=== PATIENT | female | born 1950 | race Caucasian/White ===

== ENCOUNTER 2020-02-17 07:36 | Outpatient (CLI) | payer BC ==
--- NOTE | 2020-02-17 11:28 | PET ---
Radionucleotide PET scan with CT attenuation correction HISTORY: Right upper lobe lung cancer with metastatic disease. Initial staging. COMPARISON: CT chest basilar Linda 02/04/2020. FINDINGS: Physiologic uptake of radiotracer throughout the enteric system and along each urinary trac t. The bilobed mass in the right upper lobe lung as a morphologic appearance similar to the CT chest fro m Linda 02/04/2020, measuring 3.3 cm x 3.0 cm greatest diameters on the current CT images. There is peripheral atelectasis. Max SUV associated with the mass is 12.0. Slightly enlarged precarinal lymph node shows max SUV 8.6. Right hilar lymph node max SUV 6.7. Other hypermetabolic abnormalities are associated with the skeleton. Locations and (max SUV) are as f ollows: Right distal clavicle (8.1) Left scapular glenoid (10.6) Right rib 7 lateral (6.7) Left rib 6 anterior (3.6) Left rib 9 lateral (6.4) Left rib 9 anterior (3.2) Sacrum right side large mass (11.3) Sacrum left superior endplate (9.5) Right iliac body (3.7) Left iliac body (9.9) Left acetabulum (9.8) Left ischium lateral (7.3) Right proximal femur (8.1, 10.5) C2 left body (7.9) C4 right superior facet (6.7) T3 left transverse process (8.5) T5 left pedicle (7.6) T6 right body (8.1) T11 right body (5.7) T12 anterior body (7.1) L2 superior endplate with mild compression (11.5) L3 right transverse process (7.0) L5 body (13.2) Nondiagnostic CT attenuation correction images also show craniotomy defect at the left temporoparieta l region. IMPRESSION : Right upper lobe neoplasm with mediastinal lymph node involvement and extensive widespread osseous me tastases. The L2 superior endplate lesion results in mild compression of the vertebral body.
== END 2020-02-17 07:37 | disposition home or self-care (01) ==
LOC: PET 07:36
PROVIDERS: ATTEND Internal Medicine Hematology & Oncology
DX: C34.11 Malignant neoplasm of upper lobe, right bronchus or lung (principal); C79.31 Secondary malignant neoplasm of brain; C79.51 Secondary malignant neoplasm of bone; G95.20 Unspecified cord compression
CPT/HCPCS: 78815; A9552

== ENCOUNTER 2020-04-12 12:31 | Outpatient (CLI) | payer BC ==
--- NOTE | 2020-04-12 13:07 | ULT ---
EXAM: Left lower extremity venous ultrasound HISTORY: Left lower extremity pain and edema COMPARISON: None TECHNIQUE: Multiplanar grayscale and color Doppler images were obtained in a left lower extremity anais ous ultrasound. Spectral analysis of the Doppler waveforms were performed. FINDINGS: The common femoral vein, profunda femoral vein, superficial femoral vein, and popliteal vei n are normal in appearance without visible thrombus. These vessels demonstrate normal compression, flow, and augmentation. The posterior tibial vein and greater saphenous vein are patent without evidence of thrombus. IMPRESSION: No evidence of DVT.
== END 2020-04-12 12:32 | disposition home or self-care (01) ==
LOC: BICULT 12:31
PROVIDERS: ATTEND Internal Medicine Hematology & Oncology
DX: M79.605 Pain in left leg (principal); R60.0 Localized edema; M79.89 Other specified soft tissue disorders

== ENCOUNTER 2020-08-14 06:35 | Outpatient (CLI) | payer BC ==
[2020-08-15 02:56] LABS: SARS-CoV-2 MS2 Positive; SARS-CoV-2 N Gene Negative; SARS-CoV-2 S Gene Negative; SARS-CoV-2 by NAA Not Detected (NotDetected); SARS-CoV-2 orf1ab Negative
== END 2020-08-14 06:36 | disposition home or self-care (01) ==
LOC: LABBT 06:35
PROVIDERS: ATTEND Surgery
DX: Z01.812 Encounter for preprocedural laboratory examination (principal); Z20.828 Contact with and (suspected) exposure to other viral communicable diseases; C34.90 Malignant neoplasm of unspecified part of unspecified bronchus or lung
CPT/HCPCS: 87635; U0003

== ENCOUNTER 2020-08-17 09:33 | Day surgery (SDC) | payer BC ==
[2020-08-16 12:22] VITALS: BMI 26.0
[2020-08-17] MEDS ORDERED: Lidocaine 1% PF 5 ML VIAL ONE (09:54)
[2020-08-17] MEDS ORDERED: Lidocaine 1% w/Epinephrine 1:100K 20 ML VIAL ONE (10:53)
[2020-08-17] MEDS ORDERED: Bupivacaine 0.25% HCL 30 ML VIAL ONE (10:53)
[2020-08-17] MEDS ORDERED: PROPOFOL 40 ML ONE (11:01)
[2020-08-17] MEDS ORDERED: Fentanyl 100 MCG/2 ML VIAL ONE (11:01)
--- NOTE | 2020-08-17 13:18 | RAD ---
Chest AP view INDICATION: History of Mediport placement COMPARISON: February 03, 2020 FINDINGS: Lungs: Right upper lobe lung mass is stable. Left lung is clear. Cardiac silhouette: There is a right IJ chest wall port in place. The tip of the catheter seen withi n the SVC. Heart size is within normal limits. Pulmonary vasculature: Normal Pleural spaces: No pleural effusion or pneumothorax is demonstrated. Upper abdomen: No abnormality seen. Osseous structures: No acute osseous abnormality. Additional findings: None. IMPRESSION: New right chest wall Mediport placement. No pneumothorax. Stable right upper lobe lung mass.
--- NOTE | 2020-08-17 19:31 | OP ---
DATE OF PROCEDURE: 08/17/2020 PREOPERATIVE DIAGNOSIS: Lung cancer. POSTOPERATIVE DIAGNOSIS: Lung cancer. PROCEDURE PERFORMED: Tunneled central line with subcutaneous port (MediPort). ANESTHESIA: TIVA with local. ESTIMATED BLOOD LOSS: Minimal. COMPLICATION: None. SPECIMEN: None. FINDINGS: The tip of the catheter was at the atriocaval junction. DESCRIPTION OF PROCEDURE: The patient was taken to the operating room and laid supine on the operating room table. After general anesthetic was obtained, the neck and chest were prepped and draped in a sterile fashion. Local anesthetic was infiltrated over the right internal jugular vein. Internal jugular vein was cannulated using a 22-gauge Finder needle followed by a Seldinger needle. Wire was passed into the superior vena cava under fluoro guidance. A small aaron was made at the wire entrance site. A separate 3 cm incision was made in the right upper chest. Subcutaneous pocket was made below the lower incision. Tubing for the MediPort tunneled from the inferior to superior incision and suture sheath was placed over the wire into the superior vena cava under fluoro guidance. The dilator and wire were removed. The end of the catheter threaded into the sheath. The sheath was peeled away. The tip of the catheter was at the atriocaval junction. MediPort tubing was cut to fit the MediPort at the lower incision. MediPort was sewn to the chest wall in the subcutaneous pocket using Prolene suture. The MediPort flushes and draws blood without difficulties, flushed with a heparin flush. The wounds were all irrigated and closed using 3-0 Vicryl, 4-0 Monocryl, and Dermabond. The patient was sent to Recovery in stable condition. All instrument counts, needle counts, and lap counts were correct. Job ID: [id number]
== END 2020-08-17 13:32 | disposition home or self-care (01) ==
LOC: SDC 09:33
PROVIDERS: ATTEND Surgery
PROC: 02HV33Z Insertion of Infusion Device into Superior Vena Cava, Percutaneous Approach (ICD-10-PCS; principal; 2020-08-17)
DX: C34.90 Malignant neoplasm of unspecified part of unspecified bronchus or lung (principal); C79.51 Secondary malignant neoplasm of bone; E78.5 Hyperlipidemia, unspecified; R73.03 Prediabetes; Z79.84 Long term (current) use of oral hypoglycemic drugs; Z79.899 Other long term (current) drug therapy; Z88.6 Allergy status to analgesic agent; Z91.048 Other nonmedicinal substance allergy status
CPT/HCPCS: 71045; C1788; J0690; J1642; J2704; J3010; S0020